=== PATIENT | male | born 2000 | race African-American/Black ===

== ENCOUNTER 2019-06-13 21:43 | Emergency (ER) | payer BC ==
--- NOTE | 2019-06-13 23:12 | ED ---
HPI Cardiac - HPI Summary HPI Summary: The pt is a 18 yr old male [facility]/o heart palpitations and tachycardia beginning 1 week [employer]. He notes that his heart has been beating out of his chest and with an increased rate for the past week. 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 He rates his current pain intensity a 0/10. No aggravating or alleviating factors noted. He also reports CP, SOB, nausea, diarrhea, abd pain, and high stress but denies any vomiting. He has Fhx of HTN. Allergies noted. Medications reviewed. - History of Current Complaint Chief Complaint: EDDysrhythmPalp Stated Complaint: PALPITATION PER PT Time Seen by Provider: 06/13/19 22:42 Hx Obtained From: Patient Onset/Duration: Started Days Ago, Resolved Timing: Intermittent, Lasting Hours, Lasting Weeks Initial Severity: Mild Current Severity: None Pain Intensity: 0 Pain Scale Used: 0-10 Numeric Chest Pain Location: Diffuse Character: Fast - palpitations, Other: Aggravating Factor(s): Nothing Alleviating Factor(s): Nothing Associated Signs and Symptoms: Positive: Negative - diarrhea, Chest Pain, Shortness of Breath, Nausea, Palpitations, Abdominal Pain, Other: - high stress , tachycardia. Negative: Vomiting - Allergy/Home Medications Allergies/Adverse Reactions: Allergies Allergy/AdvReac Type Severity Reaction Status Date / Time No Known Allergies Allergy Verified 03/13/19 12:22 Home Medications: Home Medications NK [No Home Medications Reported] 06/13/19 [History Confirmed 06/13/19] PMH/Surg Hx/FS Hx/Imm Hx Endocrine/Hematology History: Denies: Hx Diabetes Cardiovascular History: Denies: Hx Hypertension, Hx Pacemaker/ICD History: Denies: Hx Renal Disease Musculoskeletal History: Denies: Hx Rheumatoid Arthritis, Hx Osteoporosis Sensory History: Denies: Hx Hearing Aid Psychiatric History: Denies: Hx Panic Disorder - Surgical History Surgical History: None Surgery Procedure, Year, and Place: none Infectious Disease History: No Infectious Disease History: Denies: Traveled Outside the [place] in Last 30 Days - Family History Known Family History: Positive: Hypertension - Social History Alcohol Use: None Substance Use Type: Reports: None Smoking Status (MU): Never Smoked Tobacco Review of Systems Constitutional: Other - pos - high stress Positive: Palpitations, Chest Pain, Other - pos - fast heart rate Positive: Shortness Of Breath Positive: Abdominal Pain, Diarrhea, Nausea. Negative: Vomiting All Other Systems Reviewed And Are Negative: Yes Physical Exam - Summary Physical Exam Summary: Constitutional: Well-developed, Well-nourished, Alert. (-) Distressed Skin: Warm, Dry HENT: Normocephalic; Atraumatic Eyes: Conjunctiva normal Neck: Musculoskeletal ROM normal neck. (-) JVD, (-) Stridor, (-) Tracheal deviation Cardio: Rhythm regular, rate normal, Heart sounds normal; Intact distal pulses; The pedal pulses are 2+ and symmetric. Radial pulses are 2+ and symmetric. (-) Murmur Pulmonary/Chest wall: Effort normal. (-) Respiratory distress, (-) Wheezes, (-) Rales Abd: Soft, (-) tenderness, (-) Distension, (-) Guarding, (-) Rebound Musculoskeletal: (-) Edema Lymph: (-) Cervical adenopathy Neuro: Alert, Oriented x3 Psych: Mood and affect Normal Triage Information Reviewed: Yes Vital Signs On Initial Exam: Initial Vitals Temp Pulse Resp BP Pulse Ox 98.4 F 80 18 146/94 97 06/13/19 21:53 06/13/19 21:53 06/13/19 21:53 06/13/19 21:53 06/13/19 21:53 Vital Signs Reviewed: Yes Diagnostics - Vital Signs Vital Signs Temp Pulse Resp BP Pulse Ox 06/13/19 21:53 98.4 F 80 18 146/94 97 - Laboratory Result Diagrams: 06/13/19 23:01 06/13/19 23:01 Lab Statement: Any lab studies that have been ordered have been reviewed, and results considered in the medical decision making process. - EKG 2146 Cardiac Rate: Bradycardia - 58 bpm EKG Rhythm: Sinus Bradycardia Summary of EKG Findings: Sinus bradycardia @ 58 bpm, lots of baseline artifact, benign early repolarization, no pathologic Q waves. 2322 Cardiac Rate: Bradycardia - 56 bpm EKG Rhythm: Sinus Bradycardia Summary of EKG Findings: Sinus bradycardia @ 56 bpm, benign early repolarization. Disposition - Course Course Of Treatment: Patient is here with palpitations. Patient feels like his heart is racing but is normal sinus during these episodes. Patient EKG which showed no evidence of underlying abnormality. Patient had a CBC, CMP, TSH which are all unremarkable outside of his creatinine. 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 Patient denied any SI, HI, AV hallucinations to me. Patient was encouraged to continue seeing his counselor at [facility]. Patient was told he needs to have his creatinine checked in 1 week and was told he could have this done at his [facility]. - Diagnoses Provider Diagnoses: Palpitation, Stress reaction, Creatinine elevation Discharge ED - Sign-Out/Discharge Documenting (check all that apply): Patient Departure - discharge Patient Received Moderate/Deep Sedation with Procedure: No - Discharge Plan Condition: Stable Disposition: HOME Patient Education Materials: Heart Palpitations (ED), Tachycardia (ED) Referrals: [facility] [Outside] - 3 Days Additional Instructions: Your Creatinine level was 1.49 today - please get it rechecked in 1 week. Comeback for any thoughts of hurting yourself or feeling like you don't have control over yourself. PLEASE RETURN TO EMERGENCY DEPARTMENT FOR ANY NEW OR WORSENING SYMPTOMS. Please follow up with your primary care physician. Please make all follow-ups in 1-3 days unless I advise you otherwise. - Billing Disposition and Condition Condition: STABLE Disposition: Home - Attestation Statements Document Initiated by Jim: Yes Documenting Scribe: Pierre Marie Provider For Whom Jim is Documenting (Include Credential): Jalen Steve MD Scribe Attestation: IPierre, scribed for Jalen Steve MD on 06/14/19 at 0011. Scribe Documentation Reviewed: Yes Provider Attestation: The documentation as recorded by the Pierre genao accurately reflects the service I personally performed and the decisions made by me, Jalen Steve MD Status of Scribe Document: Viewed
[2019-06-13 23:22] LABS: ABS Eosinophils 0.1 10^3/ul (0-0.6); ABS Lymphocytes 1.7 10^3/ul (1.0-4.8); ABS Monocytes 0.4 10^3/ul (0-0.8); ABS Neutrophils 1.4 10^3/ul (1.5-7.7); Eosinophil % 3.8 %; Hematocrit 42 % (42-52); Lymphocyte % 46.9 %; Mean Corpuscular HGB Conc 33 g/dL (31-36); Mean Corpuscular Hemoglobin 29 pg (27-31); Mean Corpuscular Volume 86 fL (80-94); Mean Platelet Volume 8.1 fL (7.4-10.4); Nucleated Red Blood Cells % 0.1; Platelet Count 227 10^3/uL (150-450); Red Cell Distribution Width 15 % (10-15); White Blood Count 3.7 10^3/uL (3.5-10.8)
[2019-06-13 23:23] LABS: ALT 26 U/L (7-52); AST 31 U/L (13-39); Albumin 4.3 g/dL (3.2-5.2); Alkaline Phosphatase 55 U/L (34-104); Anion Gap 6 mmol/L (2-11); BUN/Creatinine Ratio 15.4 (8-20); Blood Urea Nitrogen 23 mg/dL (6-24); CO2 Carbon Dioxide 25 mmol/L (22-32); Calcium 9.2 mg/dL (8.6-10.3); Chloride 104 mmol/L (101-111); EGFR African American 72.8 (>60); EGFR Non-African American 60.1 (>60); Globulin 2.2 g/dL (2-4); Glucose 97 mg/dL (70-100); Potassium 3.9 mmol/L (3.5-5.0); Sodium 135 mmol/L (135-145); Total Protein 6.5 g/dL (6.4-8.9)
[2019-06-13 23:29] LABS: Alcohol < 10 mg/dL (<10)
[2019-06-13 23:44] LABS: TSH (Thyroid Stimulating Horm) 1.33 mcIU/mL (0.34-5.60)
[2019-06-14 00:16] VITALS: BP 130/88
== END 2019-06-14 00:15 | disposition home or self-care (01) ==
LOC: ED 21:43
DX: R00.2 Palpitations (principal); F43.9 Reaction to severe stress, unspecified; R79.89 Other specified abnormal findings of blood chemistry
CPT/HCPCS: 36415; 80053; 80320; 84443; 85025; 85060; 93005; 99283; G0480

== ENCOUNTER 2021-02-11 22:10 | Inpatient (IN) ==
[2021-02-11 23:46] LABS: ABS Basophils 0.1 10^3/ul (0-0.2); ABS Eosinophils 0.3 10^3/ul (0-0.6); ABS Lymphocytes 1.8 10^3/ul (1.0-4.8); ABS Monocytes 0.9 10^3/ul (0-0.8); ABS Neutrophils 4.7 10^3/ul (1.5-7.7); Eosinophil % 4.1 %; Hematocrit 45 % (42-52); Hemoglobin 14.8 g/dL (14.0-18.0); Lymphocyte % 23.5 %; Mean Corpuscular HGB Conc 33 g/dL (31-36); Mean Corpuscular Hemoglobin 28 pg (27-31); Mean Corpuscular Volume 85 fL (80-94); Mean Platelet Volume 7.8 fL (7.4-10.4); Nucleated Red Blood Cells % 0.2; Platelet Count 309 10^3/uL (150-450); Red Blood Count 5.24 10^6 /uL (4.18-5.48); Red Cell Distribution Width 14 % (10-15); White Blood Count 7.7 10^3/uL (3.5-10.8)
[2021-02-11 23:56] LABS: Urine Appearance Clear; Urine Bilirubin Negative (Negative); Urine Blood 1+ (Negative); Urine Color Yellow; Urine Glucose Negative (Negative); Urine Ketones 1+ (Negative); Urine Nitrite Negative (Negative); Urine Protein Negative (Negative); Urine Urobilinogen Negative (Negative)
[2021-02-12 00:03] LABS: ALT 48 U/L (7-52); AST 85 U/L (13-39); Albumin 4.8 g/dL (3.2-5.2); Albumin/Globulin Ratio 1.4 (1-3); Alkaline Phosphatase 54 U/L (35-149); Anion Gap 9 mmol/L (2-11); Blood Urea Nitrogen 19 mg/dL (6-24); CO2 Carbon Dioxide 26 mmol/L (22-32); Calcium 9.7 mg/dL (8.6-10.3); Chloride 100 mmol/L (101-111); EGFR African American 82.8 (>60); EGFR Non-African American 68.4 (>60); Globulin 3.4 g/dL (2-4); Glucose 91 mg/dL (70-100); Potassium 3.4 mmol/L (3.5-5.0); Sodium 135 mmol/L (135-145); Total Protein 8.2 g/dL (6.4-8.9)
[2021-02-12 00:07] LABS: Urine Bacteria Absent (Absent); Urine Red Blood Cell Trace(0-2/hpf) (Absent); Urine White Blood Cell Absent (Absent)
[2021-02-12 00:14] LABS: Urine Benzodiazepine Screen None Detected (None Detect); Urine Cannabinoids Screen Presumptive Positive (None Detect); Urine Opiates Screen None Detected (None Detect)
[2021-02-12 00:51] LABS: Acetaminophen < 15 mcg/mL; Alcohol, S 12 mg/dL (<10); Salicylate < 2.50 mg/dL (<30)
[2021-02-12] MEDS ORDERED: LORazepam 2 mg VIAL 1 ml ONE (08:50)
[2021-02-12] MEDS ORDERED: Haloperidol 5 mg/ml SDV IV/IM 5 MG/ML AMP ONE (08:50)
[2021-02-12] MEDS ORDERED: diPHENhydraMINE IV 50 MG/ML 1 ml VIAL (BENADRYL) ONE (08:50)
[2021-02-12] MEDS: Vitamin THERAPEUTIC TAB PO SCH (09:12)
[2021-02-12] MEDS ORDERED: Nicotine GUM 4MG FRUIT FLAVOR PO PRN (15:30)
[2021-02-13] MEDS: Vitamin THERAPEUTIC TAB PO SCH (08:00)
[2021-02-13 09:02] LABS: HDL Cholesterol 49.7 mg/dL
[2021-02-14] MEDS: Vitamin THERAPEUTIC TAB PO SCH (08:01)
[2021-02-15] MEDS: Vitamin THERAPEUTIC TAB PO SCH (09:12)
[2021-02-16] MEDS: Vitamin THERAPEUTIC TAB PO SCH (08:25)
[2021-02-17] MEDS: Vitamin THERAPEUTIC TAB PO SCH (07:26)
[2021-02-18] MEDS: Vitamin THERAPEUTIC TAB PO SCH (07:13)
[2021-02-19] MEDS: Vitamin THERAPEUTIC TAB PO SCH (09:50)
[2021-02-20] MEDS: Vitamin THERAPEUTIC TAB PO SCH (09:06)
[2021-02-21] MEDS: Vitamin THERAPEUTIC TAB PO SCH (09:17)
[2021-02-22] MEDS: Vitamin THERAPEUTIC TAB PO SCH (07:48)
[2021-02-23] MEDS: Vitamin THERAPEUTIC TAB PO SCH (09:13)
[2021-02-24] MEDS: Vitamin THERAPEUTIC TAB PO SCH (07:33)
[2021-02-25 08:58] VITALS: BP 127/85
[2021-02-25] MEDS: Vitamin THERAPEUTIC TAB PO SCH (09:01)
== END 2021-02-25 14:03 | disposition home or self-care (01) | DRG 753 ==
LOC: ED 22:10 → BSU 02-12 04:09
PROVIDERS: ADMIT Psychiatry & Neurology Psychiatry; ATTEND Psychiatry & Neurology Psychiatry